=== PATIENT | female | born 1980 | race American Indian/Alaskan Native ===

== ENCOUNTER 2017-09-29 12:01 | Emergency (ER) | payer OTHER ==
[2017-09-29 12:10] VITALS: BP 113/67
--- NOTE | 2017-09-29 14:16 | Emergency Department Report ---
ED Female HPI - General Chief complaint: Urogenital-Female Stated complaint: VAGINAL DISCHARGE Time Seen by Provider: 09/29/17 13:51 Source: patient Mode of arrival: Ambulatory Limitations: No Limitations - History of Present Illness Initial comments: This is a 37 y.o. female presents with vaginal irritation and discharge x 3 days. She is taking AZO yeast pills with no improvement. Denies odor, abdominal pain, and low back pain. Denies possibly being STD. Recently changed soaps 2 weeks ago. MD Complaint: vaginal discharge (white) -: Gradual, days(s) (3) Location: labia Radiation: non-radiating Severity: mild Severity scale (0 -10): 0 Quality: other (itching) Consistency: constant Improves with: none Worsens with: none Are you Now?: No Associated Symptoms: vaginal discharge. denies: vaginal bleeding, abdominal pain, nausea/vomiting, fever/chills, headaches, loss of appetite, dysuria, hematuria, rash, seizure, shortness of breath, syncope, weakness - Related Data Sexually active: Yes Previous Rx's Medication Instructions Recorded Last Taken Type Fluconazole [Diflucan TAB] 150 mg PO ONCE 2 Days #2 tablet 09/29/17 Unknown Rx metroNIDAZOLE [Metronidazole] 500 mg PO BID 7 Days #14 tablet 09/29/17 Unknown Rx Allergies Allergy/AdvReac Type Severity Reaction Status Date / Time No Known Allergies Allergy Unverified 09/29/17 12:10 ED Review of Systems ROS: Stated complaint: VAGINAL DISCHARGE Other details as noted in HPI Constitutional: no symptoms reported, see HPI. denies: chills, diaphoresis, fever, malaise, weakness Respiratory: no symptoms reported, see HPI. denies: cough, orthopnea, shortness of breath, SOB with exertion, SOB at rest, stridor, wheezing Cardiovascular: as per HPI. denies: chest pain, palpitations, dyspnea on exertion, orthopnea, edema, syncope, paroxysmal nocturnal dyspnea Gastrointestinal: as per HPI. denies: abdominal pain, nausea, vomiting, diarrhea, constipation, hematemesis, melena, hematochezia Genitourinary: as per HPI, discharge. denies: urgency, dysuria, frequency, hematuria, abnormal menses, dyspareunia Musculoskeletal: as per HPI. denies: back pain, joint swelling, arthralgia, myalgia Psychiatric: as per HPI. denies: anxiety, depression, auditory hallucinations, visual hallucinations, homicidal thoughts, suicidal thoughts ED Past Medical Hx - Past Medical History Previous Medical History?: No - Surgical History Past Surgical History?: No - Social History Smoking Status: Never Smoker Substance Use Type: None - Medications Home Medications: Home Medications Medication Instructions Recorded Confirmed Last Taken Type Fluconazole [Diflucan TAB] 150 mg PO ONCE 2 Days #2 tablet 09/29/17 Unknown Rx metroNIDAZOLE [Metronidazole] 500 mg PO BID 7 Days #14 tablet 09/29/17 Unknown Rx ED Physical Exam - General Limitations: No Limitations General appearance: alert, in no apparent distress - Respiratory Respiratory exam: Present: normal lung sounds bilaterally. Absent: respiratory distress, wheezes, rales, rhonchi, stridor, chest wall tenderness, accessory muscle use, decreased breath sounds, prolonged expiratory - Cardiovascular Cardiovascular Exam: Present: regular rate, normal rhythm, normal heart sounds. Absent: bradycardia, tachycardia, irregular rhythm, systolic murmur, diastolic murmur, rubs, gallop, clicks, JVD, S3, S4 - GI/Abdominal GI/Abdominal exam: Present: soft, normal bowel sounds. Absent: distended, tenderness, guarding, rebound, rigid, diminished bowel sounds, hyperactive bowel sounds, hypoactive bowel sounds, organomegaly, mass, bruit, pulsatile mass , hernia - External exam: Present: normal external exam. Absent: erythema, swelling, lesions, lacerations, ecchymosis, bleeding Speculum exam: Present: erythema, vaginal discharge (curdy white-yellow discharge, negative odor and cervical tenderness). Absent: cervical discharge, vaginal bleeding, foreign body, tissue, laceration Bi-manual exam: Present: normal bi-manual exam. Absent: cervical motion tendernes, adnexal tenderness, adnexal mass, uterine enlargement, uterine tenderness - Back Exam Back exam: Present: normal inspection, full ROM. Absent: tenderness, CVA tenderness (R), CVA tenderness (L), muscle spasm, paraspinal tenderness, vertebral tenderness, rash noted - Neurological Exam Neurological exam: Present: alert, oriented X3, CN II-XII intact, normal gait, reflexes normal. Absent: altered, abnormal gait, motor sensory deficit - Psychiatric Psychiatric exam: Present: normal affect, normal mood. Absent: depressed, agitated, anxious, flat affect, manic, homicidal ideation, suicidal ideation ED Course Vital Signs 09/29/17 12:07 Temperature 98.4 F Pulse Rate 84 Respiratory 14 Rate Blood Pressure 113/67 O2 Sat by Pulse 100 Oximetry Critical care attestation.: If time is entered above; I have spent that time in minutes in the direct care of this critically ill patient, excluding procedure time. ED Disposition Clinical Impression: Vaginal discharge Vaginitis Qualifiers: Chronicity: acute Qualified Code(s): N76.0 - Acute vaginitis Disposition: - TO HOME OR SELFCARE Is pt being admited?: No Does the pt Need Aspirin: No Condition: Stable Instructions: Vulvovaginal Candidiasis (ED), Vaginitis (ED) Additional Instructions: Avoid douching and irritants such as strong soaps or bubble baths can help prevent vaginitis. Male condoms may help prevent spread of infection. Lactobacillus acidophilus supplements in the diet may help to prevent recurrence of infectious vaginitis. Follow up with primary care provider. Prescriptions: Fluconazole [Diflucan TAB] 150 mg PO ONCE 2 Days #2 tablet metroNIDAZOLE [Metronidazole] 500 mg PO BID 7 Days #14 tablet Referrals: PRIMARY CARE, [Primary Care Provider] - 3-5 Days Forms: Work/School Release Form(ED) Time of Disposition: 14:51 Print Language: TAJIK
[2017-09-29 14:29] LABS: Bacteria,Urine 2+ /HPF (Negative); Bilirubin,Urine NEG (Negative); Blood,Urine NEG (Negative); Ketones,Urine NEG (Negative); Leukocyte Esterase,Urine LG (Negative); Mucus,Urine 2+ /HPF; Nitrite,Urine NEG (Negative); Protein,Urine <15 mg/dL mg/dL (Negative)
== END 2017-09-29 15:15 | disposition home or self-care (01) ==
LOC: ED 12:01
DX: N76.0 Acute vaginitis (principal); N89.8 Other specified noninflammatory disorders of vagina
CPT/HCPCS: 81001; 87210; 87591; 99284